=== PATIENT | male | born 1995 ===

== ENCOUNTER → 2022-09-03 09:47 | Outpatient (BNVA) | payer MEDICAID, SELFPAY | PROVIDERS: Referring Provider Dermatology; Visit Provider Nurse Practitioner Family | DX: M25.561 Pain in right knee (principal); G89.29 Other chronic pain | CPT/HCPCS: 73560; 73565; 99203 ==

== ENCOUNTER 2022-09-03 10:44 | Outpatient (CLI) | payer MEDICAID, SELFPAY | END 2022-09-03 10:45 | disposition home or self-care (01) | LOC: SPT 10:45 | PROVIDERS: Visit Provider Nurse Practitioner Family | DX: Z46.89 Encounter for fitting and adjustment of other specified devices (principal); M25.561 Pain in right knee | CPT/HCPCS: 97760; L1812 ==